=== PATIENT | female | born 1960 | race Caucasian/White ===

== ENCOUNTER 2017-11-25 17:13 | Emergency (ER) | payer OTHER ==
[~2017-11-25] VITALS: Ht 167.6 cm; Wt 104.3 kg
[~2017-11-25 17:13] MED LIST: BROMFED DM COU118 M1 PO; MEDROL4 M2 PO; TESSALON PERLE100 M1 PO; ZITHROMAX250 M2 PO
[2017-11-25 17:17] VITALS: BP 179/75
--- NOTE | 2017-11-25 17:24 | ED INFLUENZA/URI COMPLAINT ---
History of Present Illness General Chief Complaint: Upper Respiratory Sx/Fever Stated Complaint: ?SINUS INFECTION, PAINFUL R SIDE OF FACE AND GLAND Source: patient, old records Exam Limitations: no limitations Vital Signs & Intake/Output Vital Signs & Intake/Output Vital Signs Date Time Temp Pulse Resp B/P B/P Pulse O2 O2 Flow FiO2 Mean Ox Delivery Rate 11/25 1736 Room Air Room Air 11/25 1717 98.3 84 18 179/75 96 Room Air Allergies Coded Allergies: phenytoin (PER PT DOES NOT REMEMBER REACTION 03/09/17) Reconcile Medications Amoxicillin/Potassium Clav (Augmentin 875-125 Tablet) 875 MG-125 MG TABLET 1 TAB PO BID sinusitis Azithromycin (Zithromax) 250 MG TABLET 1 DP PO AD pneumonia 2 the first day followed by 1 for days 2-5 Benzonatate (Tessalon Perle) 100 MG CAPSULE 1 CAP PO TID PRN cough Brompheniramine/Pseudoephed/Dm (Bromfed Dm Cough Syrup) 2 MG-30 MG-10 MG/5 ML SYRUP 5-10 ML PO Q4-6 PRN PRN cough Methylprednisolone. (Medrol) 4 MG TAB.DS.PK 1 DP PO AD pneumonia 6 on day 1 then reduce by one tablet daily until gone Oxycodone HCl/Acetaminophen (Percocet 5-325 MG Tablet) 5 MG-325 MG TABLET 1 TAB PO BID PRN pain Triage Note: PT TO ER C/C RIGHT SIDED FACIAL PAIN/PRESSURE X 2 DAYS. USING MUCINEX WITH SOME RELIEF. DENIES FEVERS/CHILLS. DENIES COUGH. Triage Nurses Notes Reviewed? yes Onset: Abrupt Duration: day(s): (2), constant Timing: recent history Severity: mild, moderate Severity Numbers: 4 Prior Episodes/Possible Cause: occassional episodes No Modifying Factors: none Associated Symptoms: denies HPI: 57-year-old female presents to ER for evaluation complaining of sinus pressure headache congestion 2 days. No fever no chills no cough no chest pain no sore throat. No sick contacts no modifying factors or associated symptoms otherwise. (Ilene ROBERTS,Klever) Past History Travel History Traveled to [place] past 21 day No Medical History Any Pertinent Medical History? see below for history Cancer(s): breast cancer Surgical History Surgical History: non-contributory Psychosocial History What is your primary language Arabic Tobacco Use: Current Daily Use Daily Tobacco Use Amount/Type: => 5 Cigarettes daily Family History Hx Contributory? No (Klever Sanchez) Review of Systems Review of Systems Constitutional: Reports: see HPI. Comments Review of systems: See HPI, All other systems negative. Constitutional, no chills no fever, HEENT: no sore throat congestion Cardiovascular: No chest pain Skin: no rashes, no change in skin Respiratory: No dyspnea no cough GI: No nausea no vomiting Muscle skeletal: No joint pain, no back pain, no neck pain, Neurologic: , no headache Heme/endocrine: No bruising (Klever Sanchez) Physical Exam Physical Exam General Appearance: well developed/nourished, no apparent distress, alert, awake Ears, Nose, Throat: moist mucous membrane Comments: Well-developed well-nourished patient in no apparent distress. Head/Face: Atraumatic, right maxillary/frontal sinus tenderness, no facial swelling Eyes: PERRL, EOMI, no conjunctival injection Ear:External auditory canal and Tympanic membranes clear, no erythema, no FB. Nose: atraumatic.Normal inspection: No bleeding Throat: Moist mucous membranes.Pharynx normal. No pharyngeal erythema/exudate seen. No stridor/drooling or assymetry. No swelling or edema. Neck: Supple, no lymphadenopathy, FROM Back: FROM Cardiovascular: Regular rate and rhythms no murmur Respiratory: No respiratory distress. Patient speaking in full complete sentences. Breath sounds clear to auscultation bilaterally: NO W/R/R Extremities: full range of motion Neuro: awake, alert, and oriented to person, place and time. There were no obvious focal neurologic abnormalities. Skin: Warm & dry;No appreciable rash on exposed skin Psych: Mood affect normal, normal memory normal judgment. Core Measures Sepsis Present: No Sepsis Focused Exam Completed? No (Klever Sanchez) Progress Differential Diagnosis: influenza, otitis, pneumonia, pharyngitis, sinusitis Plan of Care: I discussed with the patient at length all of their results. I had an extensive conversation regarding need for close follow up with their primary care physician this week as well as return precautions. I answered all of their questions, they feel comfortable with the plan and follow-up care. I discussed with the patient the medications that they will receive. I gave them signs and symptoms that could indicate an adverse reaction. I have advised them to limit their activities until they can see how they respond to the medication. Initial ED EKG: none (Klever Sanchez) Departure Departure Time of Disposition: 1732 Disposition: HOME OR SELF CARE Condition: Stable Clinical Impression Primary Impression: Sinusitis Referrals: Marcos Hatch MD (PCP/Family) Additional Instructions: Augmentin as directed interchange Tylenol Motrin every 4-6 hours. Drink plenty of fluids follow-up with her regular doctor this week return with any concerns Departure Forms: Customer Survey General Discharge Information Prescriptions: Current Visit Scripts Amoxicillin/Potassium Clav (Augmentin 875-125 Tablet) 1 TAB PO BID #14 TAB Oxycodone HCl/Acetaminophen (Percocet 5-325 MG Tablet) 1 TAB PO BID PRN pain #8 TAB (Klever Sanchez) PA/TIRE VULCANIZER Co-Sign Statement Statement: ED Attending supervision documentation- I saw and evaluated the patient. I have also reviewed all the pertinent lab results and diagnostic results. I agree with the findings and the plan of care as documented in the PA's/TIRE VULCANIZER's documentation. x I have reviewed the ED Record and agree with the PA's/TIRE VULCANIZER's documentation. [] Additions or exceptions (if any) to the PAs/TIRE VULCANIZER's note and plan are summarized below: [] (Leigh JAMES,Nic)
[2017-11-25] MEDS ORDERED: AUGMENTIN 875-1 EACH PO (17:34)
[2017-11-25] MEDS ORDERED: PERCOCET 5-3251 EACH PO (17:34)
== END 2017-11-25 17:38 ==
LOC: ERH 17:13
DX: J32.9 Chronic sinusitis, unspecified (principal); F17.210 Nicotine dependence, cigarettes, uncomplicated

== ENCOUNTER 2018-02-08 18:08 | Emergency (ER) | payer OTHER ==
[~2018-02-08] VITALS: Ht 167.6 cm; Wt 90.7 kg
[~2018-02-08 18:08] MED LIST changes: +AUGMENTIN 875-1 EACH PO; +PERCOCET 5-3251 EACH PO
--- NOTE | 2018-02-08 19:32 | RADIOLOGY REPORT ---
EXAMINATION: XR CHEST CLINICAL INFORMATION: Question congestive heart failure. COMPARISON: None TECHNIQUE: 2 views of the chest were obtained. FINDINGS: No significant abnormality is noted involving the heart, lungs, mediastinum, bony thorax or soft tissues. There are left axillary surgical clips. A large Schmorl's node is seen on one of the lower thoracic vertebral bodies. IMPRESSION: Unremarkable examination.
[2018-02-08 20:21] LABS: ABSOLUTE BASOPHIL COUNT 0.1 /CUMM (0.0-0.2); ABSOLUTE EOSINOPHIL COUNT 0.3 /CUMM (0.0-0.7); ABSOLUTE GRANULOCYTE CT 7.7 /CUMM (1.4-6.5); ABSOLUTE LYMPH COUNT 3.1 /CUMM (1.2-3.4); ABSOLUTE MONOCYTE COUNT 0.7 /CUMM (0.10-0.60); BASOPHIL % 0.6 % (0.0-2.0); EOSINOPHIL % 2.2 % (0-5); GRANULOCYTE % 64.9 % (42.2-75.2); HEMATOCRIT 43.5 % (37-47); MEAN CORPUSCULAR HGB 26.7 PG (27.0-31.0); MEAN CORPUSCULAR HGB CONC 32.4 G/DL (33.0-37.0); MEAN CORPUSCULAR VOLUME 82.3 FL (81.0-99.0); MEAN PLATELET VOLUME 11.9 FL (7.4-10.4); PLATELET COUNT 260 /CUMM (130-400); RBC DISTRIBUTION WIDTH 15.6 % (11.5-14.5); RED BLOOD CELL CT 5.28 /CUMM (4.20-5.40); WHITE BLOOD CELL COUNT 11.8 /CUMM (4.8-10.8)
--- NOTE | 2018-02-08 20:22 | ED GENERAL ADULT ---
History of Present Illness General Chief Complaint: General Adult Stated Complaint: PT LEGS ARE SWELLING UP Source: patient, old records Exam Limitations: no limitations Vital Signs & Intake/Output Vital Signs & Intake/Output Vital Signs Date Time Temp Pulse Resp B/P B/P Pulse O2 O2 Flow FiO2 Mean Ox Delivery Rate 02/08 2039 98.3 92 20 168/80 97 Room Air 02/08 1815 98.8 101 18 160/64 97 Room Air ED Intake and Output 02/09 0000 02/08 1200 Intake Total Output Total Balance Patient 200 lb Weight Weight Reported by Patient Measurement Method Allergies Coded Allergies: phenytoin (PER PT DOES NOT REMEMBER REACTION 03/09/17) Reconcile Medications Compression Socks, Medium (Futuro Restoring) 1 EACH EACH 1 ERLINDA TOP DAILY leg swelling Triage Note: PT FROM HOME C/O BILATERAL LEG SWELLING X1 WEEK. PT STATES SHE HAS NOT SEEN HER PCP. PT IS CURRENTLY ON PAIN MEDICATIONS FOR A PINCHED NERVE BETWEEK L4 AND L5. PT STATES "I THINK THE SWELLING HAS BEEN FROM ME SLEEPING IN A CHAIR THE PAST 2 WEEKS BECAUSE OF MY BACK PAIN I CANT SLEEP IN MY BED." PT ABLE TO AMBULATE WITH STEADY GAIT AND NO DIFFICULTIES. PT HAS +2 EDEMA NOTED TO BILATERAL LOWER EXT. Triage Nurses Notes Reviewed? yes HPI: This is a 57-year-old female with history of left-sided sciatica presenting to the emergency department with bilateral lower extremity edema. Patient states that the edema has gradually accumulated over the last few weeks, associated with her inability to lay flat. She has instead of sleeping in bed, been sleeping in a lounge seat with her feet well below the level of her heart. She denies any skin changes. She has had no cold intolerance, hair loss, change in appetite, unintentional weight gain. She denies any shortness of breath, orthopnea. She is scheduled to undergo a steroid injection this coming week to help alleviate the sciatica pain. She has no history of blood clots, denies any exogenous estrogen, smoking, recent travel or trauma or immobilization. She denies any paresthesias or severe pain to the lower extremities. (Donta JAMES,Won) Past History Travel History Traveled to [place] past 21 day No Medical History Any Pertinent Medical History? see below for history Neurological: NONE EENT: NONE Cardiovascular: NONE Respiratory: NONE Gastrointestinal: NONE Hepatic: NONE Renal: NONE Musculoskeletal: NONE Psychiatric: NONE Endocrine: NONE Cancer(s): breast cancer Surgical History Surgical History: non-contributory Psychosocial History What is your primary language [place] Tobacco Use: Current Daily Use Daily Tobacco Use Amount/Type: => 5 Cigarettes daily ETOH Use: denies use Illicit Drug Use: denies illicit drug use Family History Hx Contributory? No (Won Longo MD) Review of Systems Review of Systems Constitutional: Reports: no symptoms. Respiratory: Reports: no symptoms. Cardiovascular: Reports: see HPI. GI: Reports: no symptoms. Genitourinary: Reports: no symptoms. Musculoskeletal: Reports: see HPI. Skin: Reports: no symptoms. Neurological/Psychological: Reports: no symptoms. Hematologic/Endocrine: Reports: no symptoms. (Won Longo MD) Physical Exam Physical Exam General Appearance: well developed/nourished, no apparent distress, alert, comfortable Head: normal appearance Eyes: Bilateral: normal appearance. Comments: This is a well-appearing middle-aged female in no acute distress. She has moist mucous membranes, and intact and within normal limits neurologic exam, no evidence of facial trauma. She has clear bilateral lung sounds and a normal cardiopulmonary exam. She is benign abdomen with no tenderness, distention, guarding. She has bilateral pitting 3+ edema to her lower extremities. There is no skin change. She is intact distal pulses and no tenderness bilaterally. There is no asymmetry between lower extremities. A few varicose veins are incidentally noted. Core Measures ACS in differential dx? No CVA/TIA Diagnosis: No Sepsis Present: No Sepsis Focused Exam Completed? No (Won Longo MD) Progress Differential Diagnoses I considered the following diagnoses in my evaluation of the patient: Clinically suspect dependent edema secondary to inability to elevate legs or sleep flat for the past several weeks. This is all secondary to sciatica which has been attributed to a diagnosed disc herniation at the level of L4-L5. She has no evidence on exam of compartment syndrome as her legs are not painful and are benign on exam. Low suspicion also for hypothyroidism, liver failure, congestive heart failure based on exam, history, and presentation. Diagnosis of bilateral deep vein thromboses seems unlikely in this patient given exam history and features, however we will check d-dimer 1 to better risk stratify. Plan of Care: Orders Procedure Date/time Status D-DIMER 02/09 1948 Complete TSH REFLEX 02/08 1818 Complete TROPONIN LEVEL 02/08 1818 Complete COMPREHENSIVE METABOLIC PANEL 02/08 1818 Complete CBC WITHOUT DIFFERENTIAL 02/08 1818 Complete B-TYPE NATRIURETIC PEP (BNP) 02/08 1818 Complete Laboratory Tests 02/08/182019: D-Dimer High Sensitivty < 200, CBC w Diff NO MAN DIFF REQ, RBC 5.28, MCV 82.3, MCH 26.7 L, MCHC 32.4 L, RDW 15.6 H, MPV 11.9 H, Gran % 64.9, Lymphocytes % 26.1, Monocytes % 6.2, Eosinophils % 2.2, Basophils % 0.6, Absolute Granulocytes 7.7 H, Absolute Lymphocytes 3.1, Absolute Monocytes 0.7 H, Absolute Eosinophils 0.3, Absolute Basophils 0.1 02/08/181844: Anion Gap 6, Estimated GFR > 60, BUN/Creatinine Ratio 30.0 H, Glucose 112 H, Calcium 9.1, Total Bilirubin 0.3, AST 20, ALT 40, Alkaline Phosphatase 106, Troponin I < 0.01, Uhb-B-Bvmcoxmcvyr Pept 19.8, Total Protein 6.2 L, Albumin 3.6, Globulin 2.6, Albumin/Globulin Ratio 1.4, TSH &T3 &Free T4 Intrp 3.430 02/08/181817: Urine Color Cancelled, Urine Clarity Cancelled, Urine pH Cancelled, Ur Specific [place] Cancelled, Urine Protein Cancelled, Urine Ketones Cancelled, Urine Nitrite Cancelled, Urine Bilirubin Cancelled, Urine Urobilinogen Cancelled, Ur Leukocyte Esterase Cancelled, Ur Microscopic Cancelled, Urine Hemoglobin Cancelled, Urine Glucose Cancelled Plan for basic labs, BNP, d-dimer, chest film, reassessment. Chest film nonacute, BNP negative, d-dimer negative, patient well-appearing on reassessment, discharged home with follow-up instructions and return precautions. Initial ED EKG: none (Donta JAMES,Won) Departure Departure Time of Disposition: 2100 Disposition: HOME OR SELF CARE Condition: Stable Clinical Impression Primary Impression: Pedal edema Referrals: Marcos Hatch MD (PCP/Family) Additional Instructions: Thank you for coming to [facility] today. As we discussed, the edema in the legs is likely secondary to your inability to elevate them because of the sciatica pain. I recommend that you try to elevate her legs as best as possible. Hopefully your sciatica pain is improved with the treatment. Please return to the emergency department if your swelling is worse if he develop any other symptoms such as shortness of breath, severe leg pain, chest pain, or lightheadedness. Departure Forms: Customer Survey General Discharge Information Prescriptions: Current Visit Scripts Compression Socks, Medium (Futuro Restoring) 1 ERLINDA TOP DAILY #2 EACH Ref 10 (Won Longo MD) PA/GLYCERIN SUPERVISOR Co-Sign Statement Statement: ED Attending supervision documentation- [] I saw and evaluated the patient. I have also reviewed all the pertinent lab results and diagnostic results. I agree with the findings and the plan of care as documented in the PA's/GLYCERIN SUPERVISOR's documentation. [x] I have reviewed the ED Record and agree with the PA's/GLYCERIN SUPERVISOR's documentation. [] Additions or exceptions (if any) to the PAs/GLYCERIN SUPERVISOR's note and plan are summarized below: [] (Yassine Edwards DO) Critical Care Note Critical Care Note Critical Care Time: non-applicable (Won Longo MD)
[2018-02-08 20:39] VITALS: BP 168/80
[2018-02-08] MEDS ORDERED: FUTURO RESTORI1 EACH TOP (21:04)
== END 2018-02-08 21:10 ==
LOC: ERH 18:08
PROVIDERS: Physician Assistant Medical
DX: R60.9 Edema, unspecified (principal)
CPT/HCPCS: 71046